=== PATIENT | female | born 1945 | race Caucasian/White ===

== ENCOUNTER 2017-01-26 03:54 | Emergency (ER) | payer MEDICARE, BC ==
[2017-01-26] MEDS ORDERED: SODIUM CHLORIDE 0.9% 1,000 ML IV STA (04:06)
[2017-01-26] MEDS ORDERED: KETOROLAC 30 MG/ML 1 ML VIAL IVP STA (04:07)
--- NOTE | 2017-01-26 04:10 | ED ---
Chest Pain HPI - General Stated Complaint: burning in chest Time Seen by Provider: 01/26/17 04:01 Source: patient, family, RN notes reviewed - History of Present Illness Initial Comments: This is a 72-year-old female who presents with complaints of chest pain is started about 2:50 AM. He states is burning in nature was 10/10 also about 8/ 10. She denies any fevers chills or sweats she has some nausea with the pain. She last ate at 5 PM last evening she does not believe it's related to this. Pain is get worse with movements and deep breathing she has had some shortness of breath with exertion she states MD Complaint: chest pain - Related Data Home Medications Medication Instructions Recorded Confirmed Aspirin 81 mg PO DAILY 07/26/15 07/26/15 Cholecalciferol [Vitamin D3] 5,000 unit PO DAILY@1200 07/26/15 07/26/15 Fish Oil/Dha/Epa [Fish Oil 1,200 1 each PO 07/26/15 07/26/15 mg Fish Oil] Hydrocodone/Acetaminophen [[place] 1 each PO Q6H PRN 07/26/15 07/26/15 10-325] Levothyroxine Sodium [Synthroid] 50 mcg PO DAILY 07/26/15 07/26/15 Magnesium 200 mg PO 07/26/15 07/26/15 Pravastatin Sodium [Pravachol] 40 mg PO DAILY 07/26/15 07/26/15 metFORMIN HCL 500 mg PO BID 07/26/15 07/26/15 Allergies Allergy/AdvReac Type Severity Reaction Status Date / Time Penicillins Allergy Rash/Hives Verified 07/26/15 05:37 Review of Systems ROS Statement: Those systems with pertinent positive or pertinent negative responses have been documented in the HPI. ROS Other: All systems not noted in ROS Statement are negative. EKG Findings - EKG Results: EKG: interpreted by MAGALIE ALVAREZ, sinus rhythm, normal axis, normal QRS, normal ST/ T, no acute changes (EKG shows normal sinus rhythm of 67 a DE interval 206 QRS duration 84 daily since QTC of 394/416 st-t wave changes) Past Medical History Past Medical History: Diabetes Mellitus, Hyperlipidemia, Hypertension History of Any Multi-Drug Resistant Organisms: None Reported Past Surgical History: No Surgical Hx Reported Past Psychological History: No Psychological Hx Reported Smoking Status: Never smoker Past Alcohol Use History: None Reported Past Drug Use History: None Reported General Exam - General Exam Comments Initial Comments: This is a well-developed well-nourished awake alert oriented x3 female General appearance: alert, anxious Head exam: Present: atraumatic, normocephalic, normal inspection Eye exam: Present: normal appearance, PERRL, EOMI. Absent: scleral icterus, conjunctival injection, periorbital swelling ENT exam: Present: normal exam, mucous membranes moist Neck exam: Present: normal inspection. Absent: tenderness, meningismus, lymphadenopathy Respiratory exam: Present: normal lung sounds bilaterally, chest wall tenderness (Reproducible tenderness palpation along the costosternal junction especially on the left.). Absent: respiratory distress, wheezes, rales, rhonchi , stridor Cardiovascular Exam: Present: regular rate, normal rhythm, normal heart sounds. Absent: systolic murmur, diastolic murmur, rubs, gallop, clicks GI/Abdominal exam: Present: soft, normal bowel sounds. Absent: distended, tenderness, guarding, rebound, rigid Extremities exam: Present: normal inspection, full ROM, normal capillary refill. Absent: tenderness, pedal edema, joint swelling, calf tenderness Back exam: Present: normal inspection Neurological exam: Present: alert, oriented X3, CN II-XII intact Psychiatric exam: Present: normal affect, normal mood Skin exam: Present: warm, dry, intact, normal color. Absent: rash Course Vital Signs 01/26/17 04:10 Temperature 97.9 F Pulse Rate 61 Respiratory 16 Rate Blood Pressure 140/72 O2 Sat by Pulse 97 Oximetry Chest Pain MDM - MDM The x-ray was negative for acute findings I did discuss findings with patient and multiple family members. Visual be discharged she is feeling much improved she would like to try holistic medication before she goes any other new medications that her prescription. She is a follow-up with her doctor and return when necessary Disposition Clinical Impression: Chest wall syndrome, Costalchondritis, Esophageal spasm Disposition: HOME SELF-CARE Condition: Good Instructions: Chest Pain (ED), Costochondritis (ED), Esophageal Spasm (ED)
[2017-01-26 04:13] VITALS: RESP 16; TEMP 97.9
[2017-01-26 04:40] LABS: CH 28.1; CHCM 33.1; HCT 38.4 % (34.0-46.0); HDW 2.69; HGB 12.8 gm/dL (11.4-16.0); MCH 28.4 pg (25.0-35.0); MCHC 33.2 g/dL (31.0-37.0); MCV 85.5 fL (80.0-100.0); Mean Platelet Volume 8.5; RBC 4.49 m/uL (3.80-5.40); WBC 10.4 k/uL (3.8-10.6); WBC (Perox) 10.19
[2017-01-26 04:42] LABS: ALT 58 U/L (9-52); AST 79 U/L (14-36); Alkaline Phosphatase 131 U/L (38-126); Amylase 55 U/L (30-110); Anion Gap 13 mmol/L; Blood Urea Nitrogen 16 mg/dL (7-17); Calcium 9.4 mg/dL (8.4-10.2); Carbon Dioxide 26 mmol/L (22-30); Chloride 105 mmol/L (98-107); Glucose 132 mg/dL (74-99); Magnesium 1.6 mg/dL (1.6-2.3); Non-African American GFR(MDRD) >60 (>60 ml/min/1.73 sqM); Potassium 4.4 mmol/L (3.5-5.1); Sodium 144 mmol/L (137-145); Total Bilirubin 0.6 mg/dL (0.2-1.3); Total Protein 7.4 g/dL (6.3-8.2)
[2017-01-26 04:45] LABS: Partial Thromboplastin Time 24.9 sec (22.0-30.0); Prothrombin Time 10.5 sec (9.0-12.0)
[2017-01-26 04:54] LABS: Creatine Kinase 60 U/L (30-135)
--- NOTE | 2017-01-26 04:58 | XR ---
EXAM: XR Chest, 2 Views. CLINICAL HISTORY: Chest Pain TECHNIQUE: Frontal and lateral views of the chest. COMPARISON: 07/26/15 FINDINGS: Lungs: Suspect small amount of left apical pleural calcification, unchanged Pleural space: Unremarkable. No pneumothorax. Heart: Unremarkable. No cardiomegaly. Mediastinum: Unremarkable. Bones/joints: Suspect old fracture of lateral left clavicle IMPRESSION: No acute findings or substantial change.
[2017-01-26 05:00] LABS: Add Differential Manual Differential
[2017-01-26 05:03] LABS: Manual Review Performed; Nucleated Red Blood Cells 0 /100 WBC (0-0); Reactive Lymphocytes Present; Total Cells Counted 100
[2017-01-26 05:07] LABS: Creatine Kinase MB 1.4 ng/mL (0.0-2.4); Troponin I <0.012 ng/mL (0.000-0.034)
[2017-01-26 05:55] VITALS: BP 159/73; PULSE 67
== END 2017-01-26 05:56 | disposition home or self-care (01) ==
LOC: EC 03:54
DX: M94.0 Chondrocostal junction syndrome [Tietze] (principal); K22.4 Dyskinesia of esophagus; R07.1 Chest pain on breathing; I10 Essential (primary) hypertension; E78.5 Hyperlipidemia, unspecified; E11.9 Type 2 diabetes mellitus without complications; Z79.82 Long term (current) use of aspirin; Z79.84 Long term (current) use of oral hypoglycemic drugs; Z79.899 Other long term (current) drug therapy; Z88.0 Allergy status to penicillin
CPT/HCPCS: 99285; 96374; 96361 ×2; 36415; 93005; 80053; 82150; 82550; 82553; 83690; 83735; 84484; 85025; 85610; 85730; 71020; J1885

== ENCOUNTER → 2021-01-03 | Outpatient (CLI) | payer MEDICARE, BC ==
--- NOTE | 2021-01-05 10:44 | P.ARTDOP ---
Arterial Doppler LOWER EXTREMITY ARTERIAL DOPPLER: DATE OF SERVICE: 01/03/2021 Reason for study: Bilaterally pain. Doppler waveforms: Multiphasic bilaterally throughout. Pulse volume recording: []. Pressure gradients: None significant. Ankle-brachial indices: 0.94 on the right and greater than 1 on the left. Toe brachial indices: 0.55 on the right, 0.55 on the left Impression: Possibly mild fem-pop disease on the right. Probably not clinically significant. Clinical correlation recommended..
== END | disposition home or self-care (01) ==
LOC: RADUSWWP 12:06
PROVIDERS: ATTEND Family Medicine
DX: I73.9 Peripheral vascular disease, unspecified (principal)
CPT/HCPCS: 93923

== ENCOUNTER → 2023-12-06 | Outpatient (CLI) | payer MEDICARE, BC ==
--- NOTE | 2023-12-06 15:11 | US ---
EXAMINATION TYPE: US kidneys/renal and bladder DATE OF EXAM: 12/06/2023 COMPARISON: NONE CLINICAL INDICATION: Female, 78 years old with history of N18.31 CHRONIC KIDNEY DISEASE, STAGE 3A; Ch ronic kidney disease EXAM MEASUREMENTS: Right Kidney: 11.7 x 5.1 x 3.9 cm Left Kidney: 12.0 x 5.3 x 6.0 cm Right Kidney: No hydronephrosis or masses seen Left Kidney: No hydronephrosis or masses seen Bladder: Appears wnl Bilateral Jets seen: Yes IMPRESSION: 1. No acute renal ultrasound abnormality
== END | disposition home or self-care (01) ==
LOC: RADUSWWP 13:46
PROVIDERS: ATTEND Internal Medicine
DX: N18.31 Chronic kidney disease, stage 3a (principal)
CPT/HCPCS: 76770

== ENCOUNTER 2024-01-27 20:54 | Emergency (ER) | payer MEDICARE, BC ==
--- NOTE | 2024-01-27 21:04 | ED ---
Upper Extremity HPI - General Stated Complaint: fall-rt shoulder injury Time Seen by Provider: 01/27/24 21:03 Source: patient, RN notes reviewed Mode of arrival: wheelchair Limitations: no limitations - History of Present Illness Initial Comments: Patient is an 78-year-old female presented to the ER with a chief complaint of right shoulder injury. Patient states she was trying to change a light bulb in one of her cabinets and was standing on a kitchen chair. She states she went to step off of the chair and missed the step falling on her right shoulder. She is endorsing pain denies any paresthesias. Denies head injury, loss of consciousness or blood thinner use. - Related Data Home Medications Medication Instructions Recorded Confirmed Aspirin 81 mg PO DAILY 07/26/15 07/26/15 Cholecalciferol [Vitamin D3] 5,000 unit PO DAILY@1200 07/26/15 07/26/15 Fish Oil/Dha/Epa [Fish Oil 1,200 1 each PO 07/26/15 07/26/15 mg Fish Oil] Hydrocodone/Acetaminophen [[place] 1 each PO Q6H PRN 07/26/15 07/26/15 10-325] Levothyroxine Sodium [Synthroid] 50 mcg PO DAILY 07/26/15 07/26/15 Magnesium 200 mg PO 07/26/15 07/26/15 Pravastatin Sodium [Pravachol] 40 mg PO DAILY 07/26/15 07/26/15 metFORMIN HCL [Glucophage] 500 mg PO BID 07/26/15 07/26/15 Allergies Allergy/AdvReac Type Severity Reaction Status Date / Time Penicillins Allergy Rash/Hives Verified 01/27/24 21:03 Review of Systems ROS Statement: Those systems with pertinent positive or pertinent negative responses have been documented in the HPI. ROS Other: All systems not noted in ROS Statement are negative. Past Medical History Past Medical History: Diabetes Mellitus, Hyperlipidemia, Hypertension Additional Past Medical History / Comment(s): tachycardia History of Any Multi-Drug Resistant Organisms: None Reported Past Surgical History: No Surgical Hx Reported Additional Past Surgical History / Comment(s): bilateral knees Past Psychological History: No Psychological Hx Reported Past Alcohol Use History: None Reported Past Drug Use History: None Reported General Exam General appearance: alert, in no apparent distress Head exam: Present: atraumatic, normocephalic, normal inspection Eye exam: Present: normal appearance, PERRL, EOMI. Absent: scleral icterus, conjunctival injection, periorbital swelling Neck exam: Present: normal inspection. Absent: tenderness, meningismus, lymphadenopathy Respiratory exam: Present: normal lung sounds bilaterally. Absent: respiratory distress, wheezes, rales, rhonchi, stridor Cardiovascular Exam: Present: regular rate, normal rhythm, normal heart sounds. Absent: systolic murmur, diastolic murmur, rubs, gallop, clicks Extremities exam: Present: tenderness (Right humeral head and mid humerus.), other (2+ right radial pulse. Sensation intact. Limited range of motion due to pain) Back exam: Present: normal inspection Neurological exam: Present: alert, oriented X3, CN II-XII intact Psychiatric exam: Present: normal affect, normal mood Skin exam: Present: warm, dry, intact, normal color. Absent: rash Course Vital Signs 01/27/24 01/27/24 20:58 23:31 Temperature 98 F Pulse Rate 60 61 Respiratory 18 18 Rate Blood Pressure 195/74 166/83 O2 Sat by Pulse 94 L 93 L Oximetry Medical Decision Making - Medical Decision Making Was pt. sent in by a medical professional or institution (, PA, P[employer], urgent care, hospital, or snf...) When possible be specific @ -No Did you speak to anyone other than the patient for history (EMS, parent, family, police, friend...)? What history was obtained from this source @ -No Did you review nursing and triage notes (agree or disagree)? Why? @ -I reviewed and agree with nursing and triage notes Were old charts reviewed (outside hosp., previous admission, EMS record, old EKG, old radiological studies, urgent care reports/EKG's, snf records)? Report findings @ -No old charts were reviewed Differential Diagnosis (chest pain, altered mental status, abdominal pain women, abdominal pain men, vaginal bleeding, weakness, fever, dyspnea, syncope, headache, dizziness, GI bleed, back pain, seizure, CVA, palpatations, mental health, musculoskeletal)? @ -Differential Musculoskeletal:Muscular strain, contusion, ligament sprain, fracture, arthritis, septic arthritis, bursitis, cellulitis, muscle spasm, nerve compression, DVT, arterial occlusion, herpes zoster, electrolyte abnormality, tumor.... This is not meant to be in all inclusive list EKG interpreted by me (3pts min.). @ -None X-rays interpreted by me (1pt min.). @ -Right shoulder x-ray interpreted by me shows no acute process. CT interpreted by me (1pt min.). @ -None done U/S interpreted by me (1pt. min.). @ -None done What testing was considered but not performed or refused? (CT, X-rays, U/S, labs)? Why? @ -CT brain/c-spine consider not performed due to [place] head trauma protocol. What meds were considered but not given or refused? Why? @ -None Did you discuss the management of the patient with other professionals (professionals i.e. , PA, P[employer]EMAN, lab, RT, psych nurse, social services specialist, stator tester, teacher, chief administrative officer, case investigator)? Give summary @ -No Was smoking cessation discussed for >3mins.? @ -No Was critical care preformed (if so, how long)? @ -No Were there social determinants of health that impacted care today? How? (Homelessness, low income, unemployed, alcoholism, drug addiction, transportation, low edu. Level, literacy, decrease access to med. care, halfway, rehab)? @ -No Was there de-escalation of care discussed even if they declined (Discuss DNR or withdrawal of care, Hospice)? DNR status @ -No What co-morbidities impacted this encounter? (DM, HTN, Smoking, COPD, CAD, Cancer, CVA, ARF, Chemo, Hep., AIDS, mental health diagnosis, sleep apnea, morbid obesity)? @ -None Was patient admitted / discharged? Hospital course, mention meds given and route, prescriptions, significant lab abnormalities, going to OR and other pertinent info. @ -Patient is a 79-year-old female presenting to the ER with chief complaint of a fall. Patient is complaining of right shoulder pain. Denies head injury, loss of consciousness or blood thinner use. History and physical exam completed. Vitals stable. Patient in no signs of acute distress. Right upper extremity neurovascular intact. Patient was tender to humeral head and scapula. No notable deformities of right arm. Patient had full active range of motion of digits, wrist and elbow. X-rays interpreted by me negative for acute process. Patient received IM Toradol with improvement of pain. Patient placed in a sling. I advised orthopedic follow-up. Return parameters were discussed. Patient discharged in stable condition with follow-up to orthopedics. Patient expressed understanding and agreement with care plan. Case discussed with ER attending, Dr. Hudson. Undiagnosed new problem with uncertain prognosis? @ -No Drug Therapy requiring intensive monitoring for toxicity (Heparin, Nitro, Insulin, Cardizem)? @ -No Were any procedures done? @ -No Diagnosis/symptom? @ -Right shoulder injury Acute, or Chronic, or Acute on Chronic? @ -Acute Uncomplicated (without systemic symptoms) or Complicated (systemic symptoms)? @ -Uncomplicated Side effects of treatment? @ -No Exacerbation, Progression, or Severe Exacerbation? @ -No Poses a threat to life or bodily function? How? (Chest pain, [place], [place], pneumonia, PE, COPD, DKA, ARF, appy, cholecystitis, CVA, Diverticulitis, Homicidal, Suicidal, threat to staff... and all critical care pts) @ -No - Radiology Data Radiology results: report reviewed, image reviewed Disposition Clinical Impression: Shoulder injury Disposition: HOME SELF-CARE Condition: Stable Instructions (If sedation given, give patient instructions): Fall Prevention for Older Adults (ED) Additional Instructions: Please follow-up with orthopedics in the next 1 to 2 days. Return to the ER for any new or worsening symptoms. Is patient prescribed a controlled substance at d/c from ED?: No Referrals: Fredi Ferreira DO [Primary Care Provider] - 1-2 days Sulaiman Rivera MD [STAFF PHYSICIAN] - 1-2 days Time of Disposition: 23:06
[2024-01-27 21:33] VITALS: RESP 18; TEMP 98
[2024-01-27] MEDS: KETOROLAC 15 MG/ML 1 ML VIAL IM STA (21:56)
[2024-01-27 23:51] VITALS: BP 166/83; PULSE 61
--- NOTE | 2024-01-28 05:49 | XR ---
EXAMINATION TYPE: XR shoulder complete RT DATE OF EXAM: 01/27/2024 CLINICAL HISTORY: Fall with pain and limited range of motion TECHNIQUE: Three views of the right shoulder are obtained. COMPARISON: None. FINDINGS: There is no acute fracture/dislocation evident in the right shoulder. [id number] n arrowing with mild spurring at the acromioclavicular joint. Glenohumeral joint is maintained. The vis ualized ribs are intact and unremarkable. IMPRESSION: There is no acute fracture or dislocation in the right shoulder.
== END 2024-01-27 23:36 | disposition home or self-care (01) ==
LOC: EC 20:54
DX: S49.91XA Unspecified injury of right shoulder and upper arm, initial encounter (principal); E11.9 Type 2 diabetes mellitus without complications; I10 Essential (primary) hypertension; E78.5 Hyperlipidemia, unspecified; Z79.899 Other long term (current) drug therapy; Z88.0 Allergy status to penicillin; Z79.82 Long term (current) use of aspirin; Z79.84 Long term (current) use of oral hypoglycemic drugs; W07.XXXA Fall from chair, initial encounter
CPT/HCPCS: 73030; 99283; 96372; J1885

== ENCOUNTER → 2024-06-24 | Outpatient (CLI) | payer MEDICARE, BC | END | disposition home or self-care (01) | LOC: LABWHC1 08:07 | PROVIDERS: ATTEND Psychiatry & Neurology Neurology | DX: G25.0 Essential tremor (principal) | CPT/HCPCS: 36415; 82607 ==